=== PATIENT | female | born 1995 | race African-American/Black ===

== ENCOUNTER 2019-10-30 19:55 | Emergency (ER) | payer MEDICAID, SELFPAY ==
[2019-10-30 20:00] VITALS: BP 134/92; PULSE 115; RESP 16; TEMP 36.6; O2SAT 97
[2019-10-30 21:09] VITALS: BP 131/87; PULSE 100; RESP 16; TEMP 37.1; O2SAT 100
[2019-10-30 21:11] VITALS: RESP 18; O2SAT 99
--- NOTE | 2019-10-30 21:49 | ED.URI ---
HPI - URI/Sore Throat General Chief Complaint: Fever Stated Complaint: weakness, body aches, sweats Time Seen by Provider: 10/30/19 21:23 Source: patient and RN notes reviewed Mode of arrival: ambulatory Limitations: no limitations History of Present Illness HPI Narrative: Pt is a 23 y/o female who presents to the ED with c/o flu-like symptoms starting 3 days ago. She notes that she has had a headache, sinus congestion, chills, body aches, SOB, cough, cold sweats, and shakiness. Pt states that she has been taking Tylenol and Mucinex for her symptoms. She notes that she was evaluated at an urgent care facility for her symptoms, and states that she was prescribed Promethazine. Pt notes that she woke up feeling relatively normal this morning, but states that she crashed later this evening. Her boyfriend notes that she may have lost consciousness twice while the two were talking this evening. MD elicited complaint: other (Flu-like symptoms) Onset (ago): day(s) (3) Associated symptoms: chills, diaphoresis (cold sweats), headache, nasal congestion, cough, shortness of breath and other (body aches; shakiness; possible syncopal episode (x2)) Related Data Allergies Allergy/AdvReac Type Severity Reaction Status Date / Time ondansetron [From Zofran] Allergy Unknown Verified 10/30/19 22:18 prochlorperazine Allergy Anaphylactic Verified 10/30/19 22:18 [From Compazine] Shock Review of Systems Review of Systems: All systems reviewed & are unremarkable except as noted in HPI and below Constitutional: Constitutional: Reports body ache(s), Reports chills, Reports excessive sweating (cold sweats) and Reports other (shakiness) ENT: Reports headache(s) and Reports nasal congestion Respiratory: Respiratory: Reports cough and Reports dyspnea Neurologic: Reports syncope (possible syncopal episode (x2)) FOR[facility]LY [facility] Past Medical History Medical History Healthy female adult Surgical History Surgical History No significant past surgical history Social History Social History Smoking status: Never smoker Course Vital Signs Vital signs: Vital Signs Temperature 36.6 C 10/30/19 20:00 Pulse Rate 115 H 10/30/19 20:00 Respiratory Rate 16 10/30/19 20:00 Blood Pressure 134/92 H 10/30/19 20:00 Pulse Oximetry 97 10/30/19 20:00 Temperature 37.1 C 10/30/19 23:33 Pulse Rate 85 10/30/19 23:33 Respiratory Rate 18 10/30/19 23:33 Blood Pressure 133/88 10/30/19 23:33 Pulse Oximetry 100 10/30/19 23:33 MDM - URI/Sore Throat MDM Narrative Medical decision making narrative: I will start her on prednisone due to the asthma with increased breathing difficulties. Otherwise she will just need symptomatic treatment for the FLu. Differential Diagnosis Differential diagnosis: Likely upper respiratory infection, bronchitis, influenza and other (asthma) Medical Records Attestation: I reviewed the patient's medical records. Lab Data Attestation: I reviewed the patient's lab results. Labs: Influenza A Screen Negative Reference Range: Negative Influenza B Screen Positive Reference Range: Negative Discharge Plan Discharge Clinical Impression: Influenza B Patient Disposition: Home, Self-Care Condition: Stable Instructions: Influenza (ED) Prescriptions: New prednisone 20 mg tablet 60 mg PO DAILY 4 Days Qty: 12 RF: 0 Follow-up/Referrals: Chris,Afshan Shukla MD [Primary Care Provider] - Discharge Date/Time: 10/30/19 23:35
[2019-10-30] MEDS: ALBUTEROL SULFATE NEB 2.5 MG/0.5 ML INH 5 MG INHALATION (22:24)
[2019-10-30 22:29] VITALS: PULSE 102; RESP 20
[2019-10-30 22:35] VITALS: PULSE 111; RESP 20
[2019-10-30] MEDS: predniSONE 20 MG TABLET 60 MG PO (22:49)
[2019-10-30 23:33] VITALS: BP 133/88; PULSE 85; RESP 18; TEMP 37.1; O2SAT 100
== END 2019-10-30 23:35 | disposition home or self-care (01) ==
PROVIDERS: Emergency Provider Emergency Medicine; PCP Internal Medicine Gastroenterology
DX: J10.1 Influenza due to other identified influenza virus with other respiratory manifestations (principal)
CPT/HCPCS: 87804; 94640; 99283; J7512